=== PATIENT | male | born 1955 | race Caucasian/White ===

== ENCOUNTER 2019-10-30 11:36 | Day surgery (SDC) | payer MEDICAID ==
[2019-10-25 10:50] LABS: BASOPHILS # (AUTO) 0.1 X10'3 (0-0.2); BASOPHILS % (AUTO) 0.9 % (0-1); EOSINOPHILS # (AUTO) 0.4 X10'3 (0-0.9)
[2019-10-25 10:51] LABS: EOSINOPHILS % (AUTO) 3.9 % (0-6); HEMATOCRIT 44.6 % (42.0-52.0); HEMOGLOBIN 15.4 g/dl (14.0-17.9); LYMPHOCYTES # (AUTO) 2.8 X10'3 (1.1-4.8); MEAN CORPUSCULAR HEMOGLOBIN 29.4 PG (27.0-31.0); MEAN CORPUSCULAR HGB CONC 34.6 g/dL (33.0-36.5); MEAN CORPUSCULAR VOLUME 85.1 FL (78-98); MEAN PLATELET VOLUME 9.5 FL (7.4-10.4); MONOCYTES # (AUTO) 0.5 X10'3 (0-0.9); MONOCYTES % (AUTO) 5.5 % (2-12); NEUTROPHILS # (AUTO) 6.1 X10'3 (1.8-7.7); NEUTROPHILS % (AUTO) 61.7 % (42-75); PARTIAL THROMBOPLASTIN TIME 28 SECONDS (22-32); PLATELET COUNT 230 X10'3 (140-440); RED BLOOD COUNT 5.24 X10'6 (4.70-6.10); RED CELL DISTRIBUTION WIDTH 13.8 % (11.5-14.5); WHITE BLOOD COUNT 9.9 X10'3 (4.5-11.0)
[2019-10-25 10:52] LABS: ALANINE AMINOTRANSFERASE 21 U/L (12-78); ALBUMIN 3.7 G/DL (3.4-5.0); ALBUMIN/GLOBULIN RATIO 1.2 (1.1-1.5); ALKALINE PHOSPHATASE 80 IU/L (46-116); ANION GAP 10 (8-16); ASPARTATE AMINO TRANSFERASE 14 U/L (10-37); BILIRUBIN,TOTAL 0.4 MG/DL (0.1-1.0); BLOOD UREA NITROGEN 13 MG/DL (7-18); BUN/CREATININE RATIO 14.1 (5.4-32.0); CALCIUM 8.5 MG/DL (8.5-10.1); CHLORIDE 107 MMOL/L (99-107); CREATININE 0.92 MG/DL (0.60-1.10); GLUCOSE 195 MG/DL (70-104); POTASSIUM 3.9 MMOL/L (3.5-5.1); SODIUM 144 MMOL/L (135-145); TOTAL CARBON DIOXIDE 26.7 MMOL/L (24-32); TOTAL PROTEIN 6.8 G/DL (6.4-8.2); eGFR 83 ML/MIN
[~2019-10-30] VITALS: Ht 185.4 cm; Wt 93.9 kg
[2019-10-30] VITALS (12 sets, daily range): BP systolic 123–170; BP diastolic 77–99
[2019-10-30] MEDS ORDERED: diphenhydrAMINE 25mg capsule PO PRN (12:25)
[2019-10-30] MEDS ORDERED: dextrose 50%-water 50ml dispensing syringe IV PRN ×2 (12:25)
[2019-10-30] MEDS ORDERED: normal saline 1,000 ML IV SCH (12:25)
[2019-10-30] MEDS ORDERED: glucagon, human recombinant 1mg kit SUBCUT PRN (12:25)
[2019-10-30] MEDS ORDERED: dextrose ORAL solution 15 GM/59 ML bottle PO PRN ×2 (12:25)
[2019-10-30] MEDS ORDERED: MESSAGE TO PHARMACY PO ONE (12:25)
[2019-10-30] MEDS ORDERED: insulin Lispro (HumaLOG) vial - multi-dose SQ SCH (12:25)
[2019-10-30] MEDS ORDERED: LORazepam 0.5 MG tablet PO PRN (12:25)
[2019-10-30] MEDS ORDERED: nitroGLYCERIN 0.4mg SUBLingual tab SL PRN ×2 (12:25→15:00)
[2019-10-30] MEDS ORDERED: PANT20TA3 PO (12:28)
[2019-10-30] MEDS ORDERED: TRAM50TA2 PO (12:28)
[2019-10-30] MEDS ORDERED: GABA600T13 PO (12:28)
[2019-10-30] MEDS ORDERED: BACL20TA7 PO (12:28)
[2019-10-30] MEDS ORDERED: CARV12.545 PO (12:28)
[2019-10-30] MEDS ORDERED: ASPI-1265 PO (12:28)
[2019-10-30] MEDS ORDERED: PRAS10TA10 PO (12:28)
[2019-10-30] MEDS ORDERED: METF750T46 PO (12:28)
[2019-10-30] MEDS ORDERED: ROSU10TA28 PO (12:28)
[2019-10-30] MEDS ORDERED: BENA40TA72 PO (12:28)
[2019-10-30] MEDS ORDERED: GLIP5TAB13 PO (12:28)
[2019-10-30] MEDS ORDERED: NITR0.4T48 SL (12:38)
[2019-10-30] MEDS ORDERED: BENA20TA82 PO (12:40)
[2019-10-30] MEDS ORDERED: fentaNYL/PF 50MCG/1 ML 2ML syringe ONE (13:32)
[2019-10-30] MEDS ORDERED: iohexol 350 MG/ML 50ML vial IV ONE (13:32)
[2019-10-30] MEDS ORDERED: iohexol 350MG/ML 100ml bottle IV ONE (13:32)
[2019-10-30] MEDS ORDERED: LIDOcaine 1% (10mg/ml)w/preservative injection 20ml MDV ONE (13:32)
[2019-10-30] MEDS ORDERED: midazolam 2 mg/2 ml injection ONE (13:32)
[2019-10-30 13:36] LABS: TROPONIN I < 0.04 NG/ML (0.0-0.05)
[2019-10-30] MEDS ORDERED: HYDROcodone/acetaminophen 10/325mg tab PO PRN (15:00)
[2019-10-30] MEDS ORDERED: OXAZEpam 15mg capsule PO PRN (15:00)
[2019-10-30] MEDS ORDERED: normal saline 1000ml 1,000 ML IV SCH (15:00)
[2019-10-30] MEDS ORDERED: HYDROcodone/acetaminophen 5mg/325mg tablet PO PRN (15:00)
[2019-10-30] MEDS ORDERED: ondansetron/PF 4mg/2ml inj IV PRN (15:00)
[2019-10-30] MEDS ORDERED: proCHLORperazine 10 MG/2 ml inj IV PRN (15:00)
[2019-10-30] MEDS ORDERED: insulin glargine (Lantus) pen - multi-dose SQ SCH (21:00)
== END 2019-10-30 20:30 | disposition home or self-care (01) ==
LOC: SSTAY O 11:36
PROVIDERS: ATTEND Internal Medicine Cardiovascular Disease
DX: R94.39 Abnormal result of other cardiovascular function study (principal); R07.9 Chest pain, unspecified; I25.10 Atherosclerotic heart disease of native coronary artery without angina pectoris; E11.40 Type 2 diabetes mellitus with diabetic neuropathy, unspecified; F17.210 Nicotine dependence, cigarettes, uncomplicated; Z72.89 Other problems related to lifestyle; F12.90 Cannabis use, unspecified, uncomplicated; Z79.899 Other long term (current) drug therapy; R06.00 Dyspnea, unspecified
CPT/HCPCS: 36415; 71046; 72050; 80053; 82948; 83880; 84484; 85025; 85610; 85730; 93458; 99152; 99153; C1760; C1769; J1644; J1815; J2001; J2250; J3010; J7030; Q0163; Q9967; A4620; A6258

== ENCOUNTER 2022-05-18 09:15 | Outpatient (CLI) | payer MEDICARE, MEDICAID ==
[~2022-05-18 09:15] MED LIST: ASPI-1265 PO; BACL20TA7 PO; BENA20TA82 PO; CARV12.545 PO; GABA600T13 PO; GLIP5TAB13 PO; METF750T46 PO; NITR0.4T48 SL; PANT20TA18 PO; PRAS10TA10 PO; ROSU10TA28 PO; TRAM50TA2 PO
[2022-05-18 10:12] LABS: CLARITY,URINE CLEAR (Clear); COLOR,URINE YELLOW (Yellow); GLUCOSE, URINE 500 mg/dl (Neg); KETONES,URINE NEGATIVE (Neg); LEUKOCYTE ESTERASE ,URINE NEGATIVE (Neg); NITRITES, URINE NEGATIVE (Neg); OCCULT BLOOD,URINE NEGATIVE (Neg); PROTEIN,URINE NEGATIVE (Neg); UROBILINOGEN,URINE 0.2 E.U/dL (0.2-1.0)
[2022-05-18 10:16] LABS: BASOPHILS # (AUTO) 0.1 X10'3 (0-0.2); BASOPHILS % (AUTO) 1.2 % (0-1); EOSINOPHILS # (AUTO) 0.6 X10'3 (0-0.9); EOSINOPHILS % (AUTO) 4.8 % (0-6); HEMATOCRIT 45.2 % (42.0-52.0); HEMOGLOBIN 14.8 g/dl (14.0-17.9); LYMPHOCYTES # (AUTO) 2.5 X10'3 (1.1-4.8); LYMPHOCYTES % (AUTO) 22.2 % (21-51); MEAN CORPUSCULAR HEMOGLOBIN 26.3 PG (27.0-31.0); MEAN CORPUSCULAR HGB CONC 32.8 g/dL (33.0-36.5); MEAN CORPUSCULAR VOLUME 80.1 FL (78-98); MEAN PLATELET VOLUME 8.5 FL (7.4-10.4); MONOCYTES # (AUTO) 0.8 X10'3 (0-0.9); MONOCYTES % (AUTO) 7.1 % (2-12); NEUTROPHILS # (AUTO) 7.4 X10'3 (1.8-7.7); NEUTROPHILS % (AUTO) 64.7 % (42-75); PLATELET COUNT 270 X10'3 (140-440); RED BLOOD COUNT 5.64 X10'6 (4.70-6.10); RED CELL DISTRIBUTION WIDTH 13.7 % (11.5-14.5); WHITE BLOOD COUNT 11.4 X10'3 (4.5-11.0)
[2022-05-18 10:16] LABS: UA COLLECTION TYPE NON-SPECIFIED
[2022-05-18 10:22] LABS: APTT 28 SECONDS (22-32)
[2022-05-18 10:27] LABS: ALANINE AMINOTRANSFERASE 18 U/L (12-78); ALBUMIN/GLOBULIN RATIO 1.2 (1.1-1.5); ALKALINE PHOSPHATASE 112 IU/L (46-116); ANION GAP 10 (8-16); ASPARTATE AMINO TRANSFERASE 18 U/L (10-37); BILIRUBIN,TOTAL 0.6 MG/DL (0.1-1.0); BLOOD UREA NITROGEN 12 MG/DL (7-18); CALCIUM 9.1 MG/DL (8.5-10.1); CHLORIDE 100 MMOL/L (99-107); GLUCOSE 201 MG/DL (70-104); LACTATE DEHYDROGENASE 172 U/L (85-227); MAGNESIUM 2.1 MG/DL (1.5-2.4); POTASSIUM 3.6 MMOL/L (3.5-5.1); SODIUM 135 MMOL/L (135-145); TOTAL CARBON DIOXIDE 24.8 MMOL/L (24-32); TOTAL PROTEIN 7.4 G/DL (6.4-8.2); eGFR > 90 ML/MIN
[2022-05-18] MEDS ORDERED: DULA1.5P SQ (11:43)
[2022-05-18] MEDS ORDERED: AMLO10TA13 PO (11:48)
[2022-05-18] MEDS ORDERED: OLAN2.5T3 PO (11:48)
== END 2022-05-18 23:59 | disposition home or self-care (01) ==
LOC: LAB 09:15
PROVIDERS: ATTEND Internal Medicine Hematology & Oncology
DX: C01 Malignant neoplasm of base of tongue (principal); Z79.899 Other long term (current) drug therapy; Z79.01 Long term (current) use of anticoagulants
CPT/HCPCS: 36415; 80053; 81003; 82043; 82570; 83615; 83735; 85025; 85610; 85730

== ENCOUNTER 2022-05-18 11:05 | Day surgery (SDC) | payer MEDICARE, MEDICAID ==
[~2022-05-18] VITALS: Ht 185.4 cm; Wt 95.0 kg
[2022-05-18 11:28] VITALS: BP 145/103
[2022-05-18] MEDS ORDERED: normal saline 1000ml 1,000 ML IV PRN (11:30)
[2022-05-18] MEDS ORDERED: normal saline 1000ml 1,000 ML IV SCH (11:40)
[2022-05-18] MEDS ORDERED: DULA1.5P SQ (11:43)
[2022-05-18] MEDS ORDERED: OLAN2.5T3 PO (11:48)
[2022-05-18] MEDS ORDERED: AMLO10TA13 PO (11:48)
[2022-05-18] MEDS ORDERED: fentaNYL/PF 50MCG/1 ML 2ML syringe ONE (13:21)
[2022-05-18] MEDS ORDERED: LIDOcaine 1% 30ml preserv. free vial ONE (13:21)
[2022-05-18] MEDS ORDERED: heparin sodium, porcine/PF 100unit/ml 5ML syringe ONE (13:21)
[2022-05-18] MEDS ORDERED: midazolam 1 mg/ML 2ml injection ONE (13:21)
[2022-05-18 14:32] VITALS: BP 137/88
[2022-05-18 14:45] VITALS: BP 153/135
[2022-05-18 15:16] VITALS: BP 145/87
--- NOTE | 2022-05-18 16:26 | NUR ---
Patient cleared to discharge. Pt. verbalized understanding of all instructions. PIV removed, intact cannula. Patient had no bleeding/swelling to right upper chest import site. Vital signs stable. Patient wheeled out to his vehicle where he was greeted and driven by his girlfriend Rhonda.
== END 2022-05-18 15:45 | disposition home or self-care (01) ==
LOC: SSTAY O 11:05
PROVIDERS: ATTEND Radiology Diagnostic Radiology
DX: C01 Malignant neoplasm of base of tongue (principal); E78.5 Hyperlipidemia, unspecified; I10 Essential (primary) hypertension; E11.9 Type 2 diabetes mellitus without complications; I25.10 Atherosclerotic heart disease of native coronary artery without angina pectoris; Z95.5 Presence of coronary angioplasty implant and graft; Z98.890 Other specified postprocedural states; Z79.84 Long term (current) use of oral hypoglycemic drugs; Z79.899 Other long term (current) drug therapy; Z79.82 Long term (current) use of aspirin; F12.90 Cannabis use, unspecified, uncomplicated
CPT/HCPCS: 36561; 76937; 77001; 82948; 99152; C1769; C1788; C1894; J1642; J2250; J3010; J3490; J7030; 99153; A4620

== ENCOUNTER 2024-10-29 10:27 | Emergency (ER) | payer MEDICARE, MEDICAID ==
[~2024-10-29] VITALS: Ht 185.4 cm; Wt 88.4 kg
[~2024-10-29 10:27] MED LIST changes: +AMLO10TA13 PO; +DULA1.5P SQ; +GABA-1405 PO; -GABA600T13 PO; -GLIP5TAB13 PO; +GLIP5TAB23 PO; +OLAN2.5T3 PO; -ROSU10TA28 PO; +ROSU10TA72 PO
[2024-10-29 10:31] VITALS: TEMP 98.4
[2024-10-29 10:58] LABS: MEAN PLATELET VOLUME 8.4 FL (7.4-10.4); RED CELL DISTRIBUTION WIDTH 17.1 % (11.5-14.5)
[2024-10-29 11:12] LABS: CREATININE 1.08 MG/DL (0.60-1.10); TOTAL CARBON DIOXIDE 24.6 MMOL/L (24-32); eCRCL 74 ML/MIN; eGFR 68 ML/MIN
[2024-10-29 12:19] LABS: LEUKOCYTE ESTERASE ,URINE NEGATIVE (Neg); NITRITES, URINE NEGATIVE (Neg); OCCULT BLOOD,URINE NEGATIVE (Neg)
[2024-10-29 12:23] LABS: UA COLLECTION TYPE CLN CATCH MIDSTREAM
[2024-10-29 12:27] LABS: MUCUS STRANDS MANY /LPF (Neg)
[2024-10-29 12:28] LABS: SQUAMOUS EPITHELIAL CELL,UR FEW /LPF (FEW)
[2024-10-29 12:29] LABS: COARSE GRANULAR CAST 0-3 /LPF (NEGATIVE)
--- NOTE | 2024-10-29 14:59 | Physician Documentation ---
History of Present Illness Chief Complaint: Flank Pain Stated Complaint: KIDNEY PAIN Time Seen by MD: 13:53 HPI 69-year-old male presents to the ED with ongoing right-sided abdominal complaints including pain to light palpation. States he was seen at [facility] in fully evaluated for kidney stones and urinary tract infection. He acknowledges that he also have ongoing enlarged prostate issues which have impeding his urinary stream. Patient was prescribed ciprofloxacin and diagnosed with a urinary tract infection at [facility]. However he finished his antibiotic regimen two days ago. States in that time he has developed increased right-sided exterior abdominal pain to slight palpation he says the pain so bad that it is causing him some nausea. He denies having any history of shingles. Denies any current rash. Medication Reconciliation Allergies: Coded Allergies: No Known Allergies (Unverified , 10/29/24) Scheduled Amlodipine Besylate (Amlodipine Besylate), 1 TAB PO DAILY, (Reported) Aspirin (Aspirin), 1 TAB PO DAILY, (Reported) Baclofen (Baclofen), 1 TAB PO QID, (Reported) Benazepril Hcl* (Lotensin*), 3 TAB PO DAILY, (Reported) Carvedilol (Carvedilol), 1 TAB PO BID, (Reported) Dulaglutide (Trulicity), 0.5 ML SQ Q7D, (Reported) Gabapentin (Gabapentin), 1 TAB PO BID, (Reported) Gabapentin (Neurontin), 1 CAP PO Q8H Glipizide (Glipizide), 1 TAB PO BID, (Reported) Metformin Hcl* (Glucophage ER*), 1 TAB PO DAILY, (Reported) Olanzapine* (Zyprexa*), 1 TAB PO DAILY, (Reported) Pantoprazole Sodium (Protonix), 1 TAB PO DAILY, (Reported) Prasugrel HCl (Prasugrel HCl), 1 TAB PO DAILY, (Reported) Rosuvastatin Calcium (Rosuvastatin Calcium), 1 TAB PO HS, (Reported) Tramadol Hcl (Tramadol Hcl), 1 TAB PO DAILY, (Reported) Valacyclovir HCl (Valacyclovir), 1 TAB PO Q8H Scheduled PRN Nitroglycerin (Nitroglycerin), 1 TAB SL PRN PRN for chest pain, (Reported) Review of Systems All Other Systems at this time: Reviewed and Negative ROS Scribed for Ben Fitch Spot Cleaner by Ben Boland NP . 10/29/24 14:56 Physical Exam Vital Signs: Temperature: 98.4, Source: Temporal, Heart Rate: 91, Respiratory Rate: 18, BP: 155/73, Pulse Oximetry: 99, Weight: 88.380 Oxygen Flow Rate: 0 Physical Exam General: Alert, no apparent distress. Neurologic: Oriented x4. Psychiatric: Normal mood and affect. Skin: Normal color, warm and dry. No edema, no ecchymosis. Painful to palpation on the right lower quadrant and right flank area,no obvious rash currently Progress Results/Orders Results/Orders Completed Orders - BEN FITCH GUE[employer] SERVICE SUPERVISOR Gabapentin Capsule (Neurontin Capsule) (10/29/24 14:45) Valacyclovir Tablet (Valtrex Tablet) (10/29/24 14:45) Vital Signs 10/29/24 10/29/24 10:31 12:13 Temp 98.4 Pulse 91 Resp 18 B/P (MAP) 155/73 Pulse Ox 99 O2 Flow Rate 0 Laboratory Tests Test 10/29/24 10:42 10/29/24 12:01 White Blood Count 8.9 Red Blood Count 5.82 Hemoglobin 13.4 L Hematocrit 41.6 L Mean Corpuscular Volume 71.4 L Mean Corpuscular Hemoglobin 23.1 L Mean Corpuscular Hemoglobin Concent 32.3 L Red Cell Distribution Width 17.1 H Platelet Count 348 Mean Platelet Volume 8.4 Neutrophils (%) (Auto) 64.7 Lymphocytes (%) (Auto) 20.1 L Monocytes (%) (Auto) 8.0 Eosinophils (%) (Auto) 6.0 Basophils (%) (Auto) 1.2 H Neutrophils # (Auto) 5.7 Lymphocytes # (Auto) 1.8 Monocytes # (Auto) 0.7 Eosinophils # (Auto) 0.5 Basophils # (Auto) 0.1 CBC Comment Sodium Level 141 Potassium Level 3.8 Chloride Level 106 Carbon Dioxide Level 24.6 Anion Gap 10 Blood Urea Nitrogen 12 Creatinine 1.08 Estimated GFR/1.73 m2 68 BUN/Creatinine Ratio 11.1 Glucose Level 143 H Calcium Level 9.3 Total Bilirubin 1.0 Aspartate Amino Transf (AST/SGOT) 15 Alanine Aminotransferase (ALT/SGPT) 21 Alkaline Phosphatase 97 Total Protein 7.6 Albumin 4.1 Globulin 3.5 Albumin/Globulin Ratio 1.2 Lipase 33 Chemistry Comments Urine Specimen Description Cln catch midstream Urine Color Yellow Urine Clarity Clear Urine pH 6.0 Urine Specific Marshall 1.020 Urine Protein Trace Urine Glucose (UA) Negative Urine Ketones 15 H Urine Occult Blood Negative Urine Nitrite Negative Urine Bilirubin Small Urine Urobilinogen 1.0 Urine Leukocyte Esterase Negative Urine RBC 0-2 Urine WBC 0-4 Urine Squamous Epithelial Cells Few Urine Bacteria Few Urine Coarse Granular Casts 0-3 Urine Mucus Many Urine Culture Indicated Not ind Volume Urine Centrifuged 10 ml Urine Comment Medical Decision Making Findings Patient was initially seen at [facility] and fully evaluated for kidney stones and urinalysis via CT scan and laboratory values. Initially concerned about a potential reaction to ciprofloxacin that may have been causing his skin discomfort. However upon further evaluation he has complaint is primarily unilateral on the right side. Very painful to touch. There is no current rash he will likely develop a rash in the coming days as I am currently suspecting shingles. I am going to start him on neuropathic drugs and an antiviral Differential Dx:Considerations: Include: AAA, Angina/TN, Aortic dissection, Appendicitis, Bowel obstruction, Cholangitis, Cholelithasis, Constipation, Diverticular disease, Esophageal rupture, Esophagitis, Gastritis/PUD, Gastroenteritis, GI hemorrhage, Hernia, Hepatitis, Inflammatory BD, Ischemic bowel, Pancreatitis, Porphyria, Testicular torsion, Trauma, intraabdominal, Urinary obstruction, Urinary tract infection, Urolithiasis, Other Departure Disposition: 01 HOME / SELF CARE / HOMELESS Impression: Primary Impression: Shingles (herpes zoster) polyneuropathy Additional Impressions: Shingles Shingles rash Shingles outbreak Drug reaction Condition: Stable Referrals: NO PRIMARY CARE PROVIDER (PCP) Prescriptions Valacyclovir HCl (Valacyclovir) 1,000 Mg Tablet 1 TAB PO Q8H for 7 Days, #21 TAB 0 Refills Prov: BEN FITCH NP 10/29/24 Gabapentin (Neurontin) 300 Mg Capsule 1 CAP PO Q8H for 30 Days, #90 CAP 0 Refills Prov: BEN FITCH NP 10/29/24 Signature Scribe Signature: u Attestation: Scribed for Ben Fitch Spot Cleaner by Ben Boland NP . 10/29/24 20:16 BEN FITCH NP Oct 29, 2024 14:59
[2024-10-29] MEDS ORDERED: GABA300C PO (15:03)
[2024-10-29] MEDS ORDERED: VALA100031 PO (15:06)
[2024-10-29 15:13] VITALS: BP 154/101; PULSE 84; RESP 16; O2SAT 98
== END 2024-10-29 15:17 | disposition home or self-care (01) ==
LOC: ER 10:28
DX: B02.9 Zoster without complications (principal); T36.8X5A Adverse effect of other systemic antibiotics, initial encounter; Z79.899 Other long term (current) drug therapy; Z79.82 Long term (current) use of aspirin; Y92.89 Other specified places as the place of occurrence of the external cause
CPT/HCPCS: 36415; 80053; 81001; 83690; 85025; 99283